=== PATIENT | male | born 1985 | race Caucasian/White ===

== ENCOUNTER → 2016-05-09 | Outpatient (CLI) | payer OTHER ==
[~2016-05-09] MED LIST: GADAVIST IV PRN
--- NOTE | 2016-05-09 17:27 | DIAGNOSTIC IMAGING REPORT ---
MRI brain/pituitary BRAIN COMBO FOR PITUITARY CLINICAL HISTORY: Low testosterone. Mental status change TECHNIQUE: Multi axial acquisition pre and post gadolinium enhancement COMPARISON STUDY: None FINDINGS: Unremarkable signal characteristics of the brain. Ventricular system is midline. Basal cisterns are within normal limits. The sella and parasellar regions are unremarkable. Pituitary is unremarkable. IMPRESSION: Normal study. Normal pituitary Electronically signed by: Gerardo Flores M.D. 05/09/2016 5:26 PM Dictated Date/Time: 05/09/2016 5:21 PM
== END | disposition home or self-care (01) ==
LOC: C.MRI 15:42
PROVIDERS: ATTEND Internal Medicine Endocrinology, Diabetes & Metabolism
DX: E29.1 Testicular hypofunction (principal); R68.82 Decreased libido

== ENCOUNTER → 2017-05-14 | Outpatient (CLI) | payer OTHER ==
[~2017-05-14] VITALS: Ht 180.3 cm; Wt 89.9 kg
[2017-05-14 11:01] VITALS: BP_SYST 136; BP_SYST 146; BP_DIAS 100; BP_DIAS 102; PULSE 83; PULSE 85; Ht 180.3 cm; Wt 89.9 kg
[2017-05-14 11:02] VITALS: BP_SYST 136; BP_SYST 154; BP_DIAS 105; BP_DIAS 110
== END | disposition home or self-care (01) ==
LOC: C.NEUR 08:50
PROVIDERS: ATTEND Internal Medicine Pulmonary Disease
DX: G47.33 Obstructive sleep apnea (adult) (pediatric) (principal); Z88.6 Allergy status to analgesic agent; Z88.8 Allergy status to other drugs, medicaments and biological substances; Z91.030 Bee allergy status

== ENCOUNTER → 2017-05-25 | Outpatient (CLI) | payer OTHER ==
--- NOTE | 2017-05-26 05:54 | PAP/PSG TECHNICIAN REPORT ---
[facility] Selector Packer Polysomnogram Report Study name: None Report date: 05/26/2017 Study date: 05/25/2017 Referring Physician: Dr. Kaleb Guzman DO Name: ADALI AZEVEDO Interpreting Physician: Kaleb Guzman D.O. Date of : 1985 Selector Packer: Nelly Araiza [facility]. Sex: Male Age: 32 StudyType: PSG Weight: 198 lbs Height: 32 years, Height 5' 11" Neck Circum: 16.5 inches BMI: 27.61 Medications: Testosterone Cypionate 100 MG/ML, Benadryl 25 mg, Cyclobenzaprine 10 mg, Effexor XR 150 mg, Effexor XR 75 mg, Epinephrine 0.3 mg/0.3ML, Gabapentin 400 mg, Meloxicam 15 mg, Omeprazole 20 mg, Ranitidine 150 mg Patient History 32 yr. old male here tonight for a diagnostic sleep study. Patients complains of snoring and disturbed nocturnal sleep. He does work overnight. ESS 08/13. Parameters Monitored NPSG: E1-M2, E2-M1, Fp1-M2, Fp2-M1, F3-M2, F4-M2, F4-M1, C3-M2, C4-M2, C4-M1, O1-M2, O2-M2, O2-M1, T3-M2, T4-M1, P3-M2, P4-M1, CHIN1, CHIN2, HR, EKG, Legs, PFLOW, SNOR, FLOW, CFLOW, Tidal Volume, THOR, ABDO, SpO2, PLTH, CPRESS, ETCO2 Wave, ETCO2, pH Sleep Architecture Sleep Stages Time at Lights Off 9:57:38 PM STAGES Time (min.) TST (%) Time at Lights On 5:41:38 AM Wake 37.5 -- Total Recording Time (TRT) 464.00 min. N1 25.0 6 Total Sleep Period (TSP) 434.0 min. N2 216.5 51 Total Sleep Time (TST) 426.5min. N3 29.0 7 Awake Time 37.5 min. REM 156.0 37 Wake after Sleep Onset 7.5 min. Sleep Efficiency (SE) 92 % Sleep Onset Latency (GUILLERMO) 30.0 min. Number of Stage 1 Shifts None Awakenings 11 Stage Changes 67 Number of REM periods 12 REM 156.0 37 REM Latency 72.5 min. NREM 270.5 63 Body Position Analysis Supine Right Left Side Prone Vertical Total Sleep Time (min.) 279.5 10.2 163.8 173.98 0.0 0.0 Total Sleep Time (%) 59% 2% 38% 41 0% N/A% Total Sleep Time REM (min.) 133.5 0.0 22.5 None 0.0 0.0 Total Sleep Time NREM (min.) 119.0 10.2 141.3 None 0.0 0.0 Intermittent Wake (min.) 26.9 7.7 2.9 None 0.0 0.0 Total Sleep Period (%) 59% None None None None None Arousals Myoclonus (PLM) * Events Count Index Events Count Index Spontaneous 10 1 Events Awake (PLMW) 36 57.6 Respiratory 2 0.3 Events Asleep w/ Arousal (PLMA) 4 0.6 PLM 4 1 Events Asleep w/o Arousal (PLMS) 35 4.9 Snoring 4 1 Total Asleep 39 5.5 Total 20 3 Total 75 10 Respiratory Analysis * CA OA MA CH H RERA Total Count 3 4 2 0 75 0 84 Index 0.4 0.6 0.3 0 10.6 0 11.8 Mean Duration 16.1 15.7 27.8 0.00 29.8 0.0 28.6 Longest Duration 18.5 21.9 33.7 0.00 33.7 0.0 55.1 Respiratory Event Summary Total Supine ~Supine Right Left Prone REM NREM Apneas Count 9 7 2 0 2 N/A 3 6 Index 1.3 2 1 0.0 0.7 N/A 1 1 Hypopneas (4% Desat) Count 75 66 9 0 9 N/A 53 22 Index 10.6 15.7 3 0.0 3.3 N/A 20.4 4.9 Apneas & All Hypopneas Count 84 73 11 0 11 N/A 56 28 Index 11.8 17 4 0 4 N/A 21.5 6.2 Respiratory Events (Art History Professor+All Hyp+RERA) Count 84 73 11 0 11 N/A 56 28 Index 11.8 17 4 0.0 4.0 N/A 21.5 6.2 Respiratory Related Arousal Count 2 73 1 0 1 N/A 0 2 Index 0.3 0 0 0 0 N/A 0 0 Snoring Analysis Supine Right Left Prone REM NREM Total Snore duration 25.8 min Snores count 502 1 527 N/A 90 940 1,030 Snore mean duration 1.5 Sec Snores index 119 6 193 N/A 34.6 208.5 144.9 TST with snoring (%) 6.0% Desaturation Event Summary: Minimum %SpO2 Event Count Mean/Min/Max Duration(sec.) Desaturation Index % Time In Bed > 90 96 25.9 / 6.3 / 60.0 13.2 94.4 86 - 90 4 11.1 / 8.0 / 14.8 9.4 5.5 81 - 85 0 N/A 0.0 0.1 76 - 80 0 N/A 0.0 0.0 71 - 75 0 N/A 0.0 0.0 66 - 70 0 N/A 0.0 0.0 61 - 65 0 N/A 0.0 0.0 56 - 60 0 N/A 0.0 0.0 51 - 55 0 N/A 0.0 0.0 < 50 0 N/A 0.0 0.0 Total REM NREM Awake <50% 0.0 min. 0.0 min. 0.0 min. 0.0 min. 51 - 60% 0.0 min. 0.0 min. 0.0 min. 0.0 min. 61 - 70% 0.0 min. 0.0 min. 0.0 min. 0.0 min. 71 - 80% 0.0 min. 0.0 min. 0.0 min. 0.0 min. 81 - 90% 26.1 min. 15.1 min. 10.3 min. 0.8 min. 91 - 100% 437.8 min. 140.9 min. 260.2 min. 36.8 min. Average 93 93 93 93 Minimum SpO2 82 82 86 87 Desaturation Event Index 12.4 23.8 7.1 9.6 # Desat. Events below 89% 25 16 8 1 Time(%) with Saturation below 89% 1.0 0.8 0.2 0.0 Time(min.) with Saturation below 89% 4.7 3.5 1.1 0.1 Time (mins) REM (mins) NREM (mins) % of TST SpO2 Below 90% 62 41 N21 2.3 SpO2 Below 88% 9 0 0 0 Heart Rate Analysis Min (bpm) Max (bpm) Average (bpm) Awake 58 111 81 NREM 52 115 74 REM 52 99 71 Overall 52 115 73 Supplemental O2 Values Minimum O2 level: None Value Start Time End Time Selector Packer Comments MR. Azevedo slept in the right, left, and supine positions. No cardiac arrhythmia. PLMs noted. No bruxism noted. Snoring was noted and scored as a 3 on a scale of 0 through 5. (0=no snoring, 5=snoring loud enough to be heard through a closed door or down the [address] way) MR. Azevedo did not wake to use the restroom during the night. MR. Azevedo stated, morning came quick. The final report will be interpreted and signed by a sleep physician. The completed physician report will then be placed in the patient medical record. Therapy (cm H2O) 0 TIB (min.) 464.0 TST (min.) 426.5 Sleep Onset (min.) 30.0 REM Onset From Sleep (min.) 72.5 Sleep Efficiency % 92 Wakefulness (%) 8 Wakefulness (min.) 37.5 NREM 1 (%) 6 NREM 1 (min.) 25.0 NREM 2 (%) 51 NREM 2 (min.) 216.5 NREM 3 (%) 7 NREM 3 (min.) 29.0 REM (%) 37 REM (min.) 156.0 # Arousals 20 Arousal Index 3 # Snore 1,030 Snore Index 144.9 AHI 11.8 AHI Supine 17 AHI Non-Supine 4 NREM AHI 6.2 REM AHI 21.5 RDI 11.8 # Obstructive Apnea 4 # Central Apnea 3 # Mixed Apnea 2 # Hypopneas 75 RERAs 0 Total Respiratory Events 86 Time Below SpO2 89% (min.) 4.6 Mean NREM SpO2 (%) 93 Mean REM SpO2 (%) 93 Mean Sleep SpO2 (%) 93 Min NREM SpO2 (%) 86 Min REM SpO2 (%) 82 Position Supine (min.) 279.5 Position Non-supine (min.) 174.0 LM Index Sleep 5.5 LM Index NREM 4.9 LM Index REM 6.5 Mean Heart Rate (bpm) 73 Min Heart Rate (bpm) 52
--- NOTE | 2017-05-30 12:19 | Sleep Study ---
Sleep Study Report Date of Service: 05/25/2017 Sleep Study Report CLINICAL DATA: The patient is a 32-year-old male who has hypogonadism. He is on testosterone therapy which could exacerbate underlying sleep apnea. He has symptoms of snoring and disturbed nocturnal sleep. His [place] Sleepiness Scale score is 5. This was an in-lab overnight polysomnography. SLEEP ARCHITECTURE: The total sleep period was 434 minutes. The total sleep time was 426.5 minutes. The sleep efficiency was normal at 92 percent. The sleep latency was prolonged to 30 minutes. Wake after sleep onset was normal at 7.5 minutes. The REM latency was normal at 72.5 minutes. Sleep consisted of stage N1 6 percent, stage N2 51 percent, stage N3 7 percent, stage REM 37 percent. AROUSAL DATA: Patient had a total of 20 arousals including 10 spontaneous arousals, 2 respiratory arousals, 4 PLM arousals, and 4 snoring arousals. The arousal index is 3. PLM DATA: The patient had a total of 39 periodic limb movements of sleep for a PLM index of 5.5. There were 4 arousals associated with limb movements for a PLM arousal index of 0.6. EKG: The minimum cardiac rate was 52 beats per minute. The average heart rate was 73 beats per minute. The underlying cardiac rhythm was normal sinus. No cardiac arrhythmia was noted. RESPIRATORY DATA: The patient had a total of 84 respiratory events during the night including 3 central apneas, 4 obstructive apneas, and 75 hypopneas. Hypopneas were scored according to the 4 percent desaturation rule. The longest apnea was 21.9 seconds. The mean duration of the hypopneas was 29.8 seconds. The apnea- hypopnea index is elevated at 11.8 events per hour. This does reflect mild obstructive sleep apnea. OXIMETRY DATA: The average saturation for the night was 93 percent. The minimum saturation was 82 percent. There was a total of only 4.7 minutes with saturations less than 89 percent. DAMPENER COMMENTS: The patient slept on the right, left, and supine positions. No cardiac arrhythmia noted. PLMS noted. No bruxism noted. Snoring was noted and scored as a 3 on a scale of 0 through 5. He did not awaken to use the restroom during the night. IMPRESSIONS: 1. Mild obstructive sleep apnea COMMENTS: The patient has mild obstructive sleep apnea. He does have prominent snoring. His sleep architecture was good. He had a mild number of limb movements. There were transient hypoxia is. In light of his symptoms and the fact that he is receiving testosterone supplementation sleep apnea should be treated. RECOMMENDATIONS: 1. It is advised that he be given a trial of nasal CPAP. 2. The patient has a mild elevation of BMI of 27.61. Weight loss is advised. 3. If possible the patient should avoid sleeping in the supine position. Copies To 1: Kaleb Guzman DO; Suraj Reyes D.O.; Ilda Garcia M.D.
== END | disposition home or self-care (01) ==
LOC: C.NEUR 20:00
PROVIDERS: ATTEND Internal Medicine Pulmonary Disease
DX: G47.33 Obstructive sleep apnea (adult) (pediatric) (principal)

== ENCOUNTER → 2017-05-28 | Outpatient (CLI) | payer OTHER ==
[~2017-05-28] VITALS: Ht 180.3 cm; Wt 91.2 kg
[2017-05-28 16:27] VITALS: BP 130/87; PULSE 80; Ht 180.3 cm; Wt 91.2 kg
== END | disposition home or self-care (01) ==
LOC: C.NEUR 14:33
PROVIDERS: ATTEND Internal Medicine Pulmonary Disease
DX: G47.33 Obstructive sleep apnea (adult) (pediatric) (principal)

== ENCOUNTER → 2017-08-13 | Outpatient (CLI) | payer OTHER ==
[~2017-08-13] VITALS: Ht 180.3 cm; Wt 86.5 kg
[2017-08-13 14:34] VITALS: BP 120/80; PULSE 86; Ht 180.3 cm; Wt 86.5 kg
== END | disposition home or self-care (01) ==
LOC: C.NEUR 14:11
PROVIDERS: ATTEND Physician Assistant
DX: G47.33 Obstructive sleep apnea (adult) (pediatric) (principal); M79.1 Myalgia